=== PATIENT | female | born 1995 | race Caucasian/White ===

== ENCOUNTER 2021-03-05 07:28 | Inpatient (IN) ==
--- NOTE | 2021-03-05 08:03 | History & Physical Report ---
Date of Service March 05, 2021 Assessment & Plan (1) Supervision of normal first : (2) GBS (group B Streptococcus carrier), +RV culture, currently : (3) Encounter for induction of labor: Plan: 26yo Female presents for induction of labor. -continue to monitor FHR and contractions -start pitocin Admission and Anticipated Discharge Date Admission Date: March 05, 2021 History of Present Illness Chief Complaint: Induction of Labor Primary Care Provider: NO PCP 26yo Female at 38 4/7 weeks gestation presents to L&D for induction of labor. She has had regular care. She is at bedside, calm and cooperative, no recent contractions, discharge fluid leakage or bleeding. No complaints of DEL TORO dizziness blurry vision tinnitus chest pain abd pain. She states she feels FM. Blood Type & RH O positive Antibody Screen Negative Pap Test ASCUS HPV negative Chlamydia Negative Gonorrhea Negative Rubella non- immune RPR non- reactive GBS Positive HBsAg Negative HIV Negative Allergies Allergy/AdvReac Type Severity Reaction Status Date / Time No Known Allergies Allergy Verified 03/05/21 10:47 Home Medications Medication Instructions Recorded Confirmed Type aspirin 81 mg tablet,delayed 81 mg PO DAILY 03/05/21 03/05/21 History release (Aspirin Low Dose) magnesium oxide 400 mg PO DAILY 03/05/21 03/05/21 History prenat.vits,gonzalo,tcn-iogn-tgkhq 1 tab PO DAILY 03/05/21 03/05/21 History Patient History Medical History History of chicken pox Magnesium deficiency Thyroid nodule Surgical History S/P excision of ganglion cyst S/P wisdom tooth extraction Family History Denies family history of Ovarian cancer Breast cancer Colorectal cancer Social History Smoking Status: Never smoker Hx Alcohol Use: No Hx Substance Use: No Preferred Language: Liberian Beliefs That Will Affect Care: None marital status: marital status details: Chandu Ryan (29) [phone] Current Living Situation: Spouse Current Living Situation Comment: lives with spouse, dogs current occupational status: previously employed current occupation: nurse Other Information That Helps Us Care for You: No Feels Safe at Home: Yes Safety Concerns: Feels Safe At This Time Assistive Devices: None OB History Review of Systems Review of Systems Denies fever, chills, sweats Denies shortness of breath, difficulty breathing, chest pain, palpitations, chest pressure. Denies breast pain. Denies dysuria. Denies headache or changes in vision, tinnitus Denies abd pain, diarrhea constipation, vaginal bleeding discharge fluid leakage Physical Exam Physical Exam: General: Alert, oriented. No acute distress. Cardiac: Regular rate and rhythm, no murmurs/rubs/gallops. Respiratory: Clear to auscultation bilaterally a/p, no wheezes/rales/rhonchi. No increased work of breathing. Symmetrical chest rise. No respiratory distress. Lower Extremities: No lower extremity edema or swelling. No deep calf pain. Christine's negative bilaterally Baseline:140 Variability:moderate Accelerations:none Decelerations:none Results & Data ([facility]) Vital Signs (Past 12 Hours) Vital Signs Pulse BP 03/05/21 07:48 76 132/78 Resident Activity Tracking Resident Involvement: Resident Care Provided Care Provided: OB Delivery
[2021-03-05] MEDS ORDERED: OXYTOCIN 30 UNITS/500 ML BAG IV PRN ×2 (08:04→08:58)
[2021-03-05] MEDS ORDERED: PENICILLIN G POTASSIUM 6 MU in DEXTROSE 5% 250 ML IV ONE (08:30)
[2021-03-05 08:33] LABS: Hematocrit (blood only) 36.3 % (37-47); Hemoglobin 12.8 g/dL (12.0-16.0); Mean Corpuscular Hemoglobin 29.8 pg (25-34); Mean Corpuscular Hgb Conc 35.3 g/dL (32-36); Mean Corpuscular Volume 84.4 fL (80-100); Mean Platelet Volume 10.2 fL (7.4-10.4); Platelet Count 155 K/uL (130-400); RDW Coefficient of Variation 12.6 % (11.5-14.5); RDW Standard Deviation 38.1 fL (36.4-46.3); White Blood Count 10.13 K/uL (4.8-10.8)
--- NOTE | 2021-03-05 09:04 | Labor Progress Brief Note ---
Date of Service March 05, 2021 Subjective Comfortable. Presents for IOL. Unable to be brought in for peterson bulb ripening last night as planned due to high L&D census, so beginning this AM instead. Arrives without OB c/o, good FM. Assessment & Plan (1) Encounter for induction of labor: Plan: Peterson now, Pit to start low dose. Will go to IOL doses after peterson out or ROM occurs. (2) Chronic hypertension affecting : Plan: BP OK this morning, no s/sx preeclampsia at this time. (3) Velamentous insertion of umbilical cord: Plan: Aware; growth has been normal, will be on the lookout for excess bleeding especially at ROM. (4) GBS (group B Streptococcus carrier), +RV culture, currently : Plan: PCN ready on the unit for when active labor is occurring. Admission and Anticipated Discharge Date Admission Date: March 05, 2021 Physical Exam Physical Exam: 1.5/50/-2/mid/moderate 7-8lb PETERSON placed without complication FHT Cat 1 irritable toco / no pattern. Results & Data ([facility]) Vital Signs (Past 12 Hours) Vital Signs Pulse BP 03/05/21 07:48 76 132/78 Coding Level of Care Code None Diagnoses Encounter for induction of labor Z34.90 Chronic hypertension affecting O10.919 Velamentous insertion of umbilical cord O43.129 GBS (group B Streptococcus carrier), +RV culture, currently O99.820
--- NOTE | 2021-03-05 09:05 | Procedure Note ---
Procedure Note Date of Service March 05, 2021 Note Patient was placed in L&D bed and a reactive NST was obtained. The peterson bulb placement process was explained to the patient and all questions answered to her satisfaction. She was positioned in lithotomy, and a non-latex peterson was pr epared with a lubricated stylet and a syringe of 30cc sterile water. A gloved hand was used to identify and examine the cervix which was found to be 1.5/50/- 2. The catheter was advanced to a point just outside the internal os, then the peterson was slid forward off of the stylet and into the uterine cavity outside the amniotic sac. The stylet was removed, and the peterson balloon was inflated to 30cc. The peterson was gently seated downward against the internal cervical os and fixed to the patient's thigh. The heart tones remained cat 1. Coding CPT Codes Misx Procedure Codes - 52746 Placement of cervical dilator: 31436 Placement of cervical dilator ([id number]) [facility] Procedure Codes ([place]) Misx Procedure Codes 43440 Placement of cervical dilator
[2021-03-05] MEDS: LACTATED RINGER'S 1,000 ML IV PRN ×3 (10:09→23:15)
[2021-03-05] MEDS: PENICILLIN G POTASSIUM 3 MU in DEXTROSE 5% 100 ML IV PRN ×2 (18:03→22:03)
--- NOTE | 2021-03-05 18:25 | Labor Progress Brief Note ---
Date of Service March 05, 2021 Subjective Tolerating contractions well, has not wanted epidural yet. Assessment & Plan (1) Encounter for induction of labor: Plan: Continue current mgmt. Epidural on request. Admission and Anticipated Discharge Date Admission Date: March 05, 2021 Physical Exam Physical Exam: /-2 AROM for clear fluid performed FHT Cat 1 Donna q2-3 second dose PCN just hung Results & Data ([facility]) Vital Signs (Past 12 Hours) Vital Signs Temp Pulse Resp BP 03/05/21 17:59 97.5 F L 20 03/05/21 17:58 80 122/81 03/05/21 15:31 70 121/78 03/05/21 15:05 98.1 F 16 03/05/21 13:38 98.4 F 20 03/05/21 13:37 89 120/75 03/05/21 12:02 69 126/85 03/05/21 09:35 20 03/05/21 07:48 97.7 F 76 20 132/78 Coding Level of Care Code None Diagnoses Encounter for induction of labor Z34.90
[2021-03-05] MEDS ORDERED: ePHEDrine sulfate 50 MG/ML AMP ONE (22:30)
[2021-03-05] MEDS ORDERED: SODIUM CHLORIDE 0.9% INJ 10 ML VIAL ONE (22:31)
[2021-03-05] MEDS ORDERED: fentaNYL citrate 100 MCG/2 ML VIAL ONE (22:31)
[2021-03-05] MEDS ORDERED: BUPIVACAINE 0.25% 30 ML VIAL ONE (22:31)
[2021-03-05] MEDS ORDERED: fentaNYL 2MCG/ML ROPIVACAINE 1.25MG/ML 100 ML BAG EPI ONE (22:31)
[2021-03-05] MEDS ORDERED: ePHEDrine sulfate 50 MG/ML AMP IV PRN (23:01)
[2021-03-05] MEDS ORDERED: NALBUPHINE HCL INJ 10 MG/ML AMP IV PRN (23:01)
[2021-03-05] MEDS ORDERED: diphenhydrAMINE 50 MG/ML VIAL IV PRN (23:01)
[2021-03-05] MEDS ORDERED: NALOXONE HCL 1 MG in SODIUM CHLORIDE 0.9% 1000ML 1,000 ML IV PRN (23:01)
[2021-03-05] MEDS ORDERED: fentaNYL 2MCG/ML ROPIVACAINE 1.25MG/ML 100 ML BAG EPI PRN (23:01)
[2021-03-05] MEDS ORDERED: ONDANSETRON INJ 2 MG/ML 2 ML VIAL IV PRN (23:01)
[2021-03-05] MEDS ORDERED: NALOXONE HCL 0.4 MG/1 ML VIAL/CARP IV PRN (23:01)
--- NOTE | 2021-03-05 23:03 | Anesthesiology Consultation ---
Date of Service March 05, 2021 Assessment & Plan (1) Encounter for pre-operative examination: Chart Review Chart Review: Patient NOT seen in Pre Admission Testing and Acceptable Risk for Labor Epidural Consults Requested none History Height/Weight Height: 5 ft 9 in Weight: 103.419 kg Allergies Allergy/AdvReac Type Severity Reaction Status Date / Time No Known Allergies Allergy Verified 03/05/21 10:47 Medications Home Medications Medication Instructions Recorded Confirmed Last Taken aspirin 81 mg tablet,delayed 81 mg PO DAILY 03/05/21 03/05/21 03/04/21 23:00 release (Aspirin Low Dose) magnesium oxide 400 mg PO DAILY 03/05/21 03/05/21 03/04/21 23:00 prenat.vits,gonzalo,ghh-ptjo-eixjt 1 tab PO DAILY 03/05/21 03/05/21 03/04/21 23:00 Active Medications Generic Name Dose Route Start Last Admin Trade Name Freq PRN Reason Stop Dose Admin Lactated Ringer's 1,000 mls @ 125 mls/hr 03/05/21 08:04 03/05/21 22:23 Lr IV 03/07/21 08:03 999 mls/hr .Q8H PRN Infusion L&D Protocol Protocol Penicillin G Potassium 3 mu/ 106 mls @ 100 mls/hr 03/05/21 08:04 03/05/21 22:03 Dextrose IV 03/15/21 08:03 100 mls/hr Q4H PRN Administration Give until delivery Oxytocin 30 units in 500 mls @ 19 mls/hr 03/05/21 08:58 03/05/21 22:53 Pitocin IV 03/07/21 08:57 1.14 units/hr .Q24H PRN 19 mls/hr Labor Induction/Augmentation Titration Protocol 1.14 UNITS/HR Past Medical History Medical History History of chicken pox Magnesium deficiency Thyroid nodule Past Family History Family History Denies family history of Ovarian cancer Breast cancer Colorectal cancer Past Surgical History Surgical History S/P excision of ganglion cyst S/P wisdom tooth extraction Past Anesthesia History No Hx of Anesthesia Complications and No Family Hx of Anesthesia Complications Social History Smoking Status: Never smoker Hx Alcohol Use: No Hx Substance Use: No substance use type: does not use Physical Exam Vital Signs Last Vital Signs Temp 36.6 C 03/05/21 22:08 Pulse 94 H 03/05/21 23:19 Resp 20 03/05/21 20:02 BP 130/79 03/05/21 23:17 Pulse Ox 99 03/05/21 23:19 Testing Laboratory Results 03/05/21 08:20
--- NOTE | 2021-03-06 00:07 | Labor Progress Brief Note ---
Date of Service March 06, 2021 Subjective Just received epidural for painful contractions (started to hurt once pitocin reached 19). Now comfortable. Assessment & Plan (1) Encounter for induction of labor: Plan: Very poor MVU despite pitocin increased to 21 right before IUPC placed. Suspicious for saturation of receptors. Will give 30min off of pitocin and re- titrate upwards to goal of 200-250, max 30mu/min rate. Ruptured, epidural in place, GBS abx adequate and continuing, status reassuring, afebrile. Pt and FOB agreeable. Admission and Anticipated Discharge Date Admission Date: March 05, 2021 Physical Exam Physical Exam: FHT Cat 1 Morris was Q2-3 Pit @ 19 IUPC and EFM placed cvx /-1 Initial MVU <50(!) Results & Data ([facility]) Vital Signs (Past 12 Hours) Vital Signs Temp Pulse Resp BP Pulse Ox 03/06/21 00:02 81 100/47 L 03/05/21 23:59 88 99 03/05/21 23:54 83 100 03/05/21 23:49 91 H 99 03/05/21 23:45 83 111/55 L 03/05/21 23:44 82 99 03/05/21 23:43 78 110/57 L 03/05/21 23:41 92 H 108/56 L 03/05/21 23:39 90 96/51 L 99 03/05/21 23:37 110 H 103/66 03/05/21 23:35 110 H 106/56 L 03/05/21 23:34 99 H 97 03/05/21 23:33 96 H 116/56 L 03/05/21 23:31 96 H 120/59 L 03/05/21 23:29 104 H 114/58 L 99 03/05/21 23:27 91 H 117/58 L 03/05/21 23:25 87 107/58 L 03/05/21 23:24 84 100 03/05/21 23:23 78 116/56 L 03/05/21 23:19 94 H 99 03/05/21 23:17 99 H 130/79 03/05/21 23:14 92 H 134/82 100 03/05/21 23:10 91 H 134/81 03/05/21 23:09 106 H 97 03/05/21 23:03 81 100 03/05/21 22:58 78 100 03/05/21 22:57 73 131/77 03/05/21 22:53 85 100 03/05/21 22:50 94 H 94 03/05/21 22:48 86 100 03/05/21 22:43 82 100 03/05/21 22:37 79 98 03/05/21 22:32 83 99 03/05/21 22:25 79 98 03/05/21 22:20 89 98 03/05/21 22:08 97.9 F 03/05/21 20:02 98.1 F 20 03/05/21 17:59 97.5 F L 20 03/05/21 17:58 80 122/81 03/05/21 15:31 70 121/78 03/05/21 15:05 98.1 F 16 03/05/21 13:38 98.4 F 20 03/05/21 13:37 89 120/75 Coding Level of Care Code None Diagnoses Encounter for induction of labor Z34.90
[2021-03-06] MEDS ORDERED: Nursing to Pharmacy Communication SCH (02:00)
[2021-03-06] MEDS: PENICILLIN G POTASSIUM 3 MU in DEXTROSE 5% 100 ML IV PRN (02:04)
[2021-03-06] MEDS ORDERED: DIPHTHERIA/TETANUS/PERTUSSIS 0.5 ML SYR/VIAL IM ONE (05:28)
[2021-03-06] MEDS ORDERED: BENZOCAINE 20% AER SPR 82.5 GM CAN EXT PRN (05:28)
[2021-03-06] MEDS ORDERED: SUPERCREAM 0.870% 15 GM JAR EXT PRN (05:28)
[2021-03-06] MEDS ORDERED: HYDROCORTISONE ACETATE 25 MG SUPP PR PRN (05:28)
[2021-03-06] MEDS ORDERED: oxyCODONE/ACETAMINOPHEN 5mg/325mg TAB PO PRN (05:28)
[2021-03-06] MEDS ORDERED: ACETAMINOPHEN 325 MG TAB PO PRN (05:28)
--- NOTE | 2021-03-06 05:33 | Delivery Summary ---
Vaginal Delivery Summary Date of Service March 06, 2021 Vaginal Delivery Summary DIAGNOSES: 1. Moreira intrauterine at 38w5d gestation. 2. Induction of Labor. 3. Group B Streptococcus Pos. 4. Chronic HTN 5. Velamentous insertion of the cord, Bi-lobed placenta PROCEDURE: Spontaneous vaginal delivery and repair of 2nd degree laceration. SURGEON: Brandi Marroquin MD. ORACLE ERP ARCHITECT: None. ESTIMATED BLOOD LOSS: 300 mL. COMPLICATIONS: None. PLACENTA: Spontaneous and intact with a 3-vessel cord. DISPOSITION: Stable to labor and delivery. DESCRIPTION: The patient pushed well and brought the head to in OA position. The infant's head was allowed to deliver with contraction force and no further active pushing, with the perineum protected during this time. There was a nuchal cord which could not be reduced but the baby delivered through. The right shoulder was anterior. The shoulders and body delivered without any difficulty, and the infant was placed on the maternal abdomen. It was vigorous and moving all extremities, and making respiratory efforts. The cord was doubly clamped by the MD and then cut by the FOB. The placenta delivered spontaneously and was noted to be intact and with a 3VC, though it had a true velamentous insertion of the cord between two portions of a bilobed placenta. Due to the velamentous insertion, traction on the cord was avoided, and the placenta was partially disrupted by being grasped in the cervix/vaginal vault and traction being applied to the placental body itself during uterine massage to encourage delivery. It was examined and did appear to be completely present after delivery. The cervix, vagina and perineum were examined and were found to have a small second degree laceration which was repaired in the usual manner with 2-0 vicryl suture. The fundus was firm and lochia minimal immediately after delivery. [facility] Vaginal Delivery Charge Vaginal Delivery Codes: 07452 global code for the antepartum, delivery, and pos t-
[2021-03-06] MEDS: LACTATED RINGER'S 1,000 ML IV PRN (06:20)
[2021-03-06] MEDS ORDERED: MEASLES, MUMPS & RUBELLA VIRUS VIAL SQ ONE (08:00)
--- NOTE | 2021-03-06 08:41 | Anesthesia Procedure Note ---
Date of Service March 06, 2021 Anesthesia Post Epidural Note Vital Signs Vital Signs: Temp Pulse Resp BP Pulse Ox 36.9 C 100 H 18 119/59 L 98 03/06/21 03:08 03/06/21 07:16 03/06/21 03:08 03/06/21 07:16 03/06/21 05:04 Pain Intensity Bilateral Abdomen: Pain Intensity: 0 Notes Mental Status: alert / awake / arousable and participated in evaluation Nausea / Vomiting: adequately controlled Pain: adequately controlled Airway Patency, RR, SpO2: stable & adequate BP & HR: stable & adequate Hydration State: stable & adequate Neuraxial Anesthesia: was administered and sensory block is resolving Anesthetic Complications: no major complications apparent and Pt Satisfied with anesthetic care Epidural: Removed without complications and With tip intact
[2021-03-06] MEDS: IBUPROFEN 600 MG TAB PO PRN ×2 (16:36→20:36)
[2021-03-06] MEDS: DOCUSATE SODIUM 100 MG CAP PO SCH (20:36)
[2021-03-07] MEDS: IBUPROFEN 600 MG TAB PO PRN ×4 (00:30→16:22)
[2021-03-07 07:07] LABS: Hematocrit (blood only) 24.8 % (37-47); Hemoglobin 8.5 g/dL (12.0-16.0)
--- NOTE | 2021-03-07 07:31 | Obstetrical Progress Note ---
Date of Service <Amy Palomino DO - Last Filed: 03/07/21 08:07> March 07, 2021 Assessment & Plan <Amy Palomino DO - Last Filed: 03/07/21 08:07> (1) Encounter for care and examination after delivery: 26 yo post op day1 from with history chronic HTN and velamentous insertion of the cord, doing well. -Continue routine post care. -vital signs reviewed and WNL (Tmax 36.5) -Blood Type O+, GBS+, Rubella nonimmune will need MMR vaccine b/f d/c -Encourage ambulation, monitor and control pain with Motrin, tylenol PRN, resume regular diet, monitor lochia -encourage breast feeding -hemoglobin 12.8 -discussed d/c with patient, they would prefer to go home today Day #:: 1 <Ирина Samaniego MD, FACOG - Last Filed: 03/07/21 08:26> (1) Encounter for care and examination after delivery: Subjective <Amy Palomino DO - Last Filed: 03/07/21 08:07> Ambulation: ambulating normally Voiding: no voiding problems Passing Gas:: Yes Diet Tolerance:: regular diet Lochia:: Small Feeding Type:: breast feeding Current Pain Level(1-10): 2 (pain well controlled on medication) Review of Systems Denies fever, chills, sweats Denies shortness of breath, difficulty breathing, chest pain, palpitations, chest pressure. Denies breast pain. Denies dysuria. Denies headache or changes in vision. Physical Exam <DO Lai Mckeon Last Filed: 03/07/21 08:07> General: Alert, oriented. No acute distress. Cardiac: Regular rate and rhythm, no murmurs/rubs/gallops. Respiratory: Clear to auscultation bilaterally a/p, no wheezes/rales/rhonchi. No increased work of breathing. Symmetrical chest rise. No respiratory distress. Abdomen: Soft, nontender, nondistended. Bowel sounds present. Uterus: Uterine fundus firm, palpable at umbilicus. Lower Extremities: No lower extremity edema or swelling. No deep calf pain. Christine's negative bilaterally.. Results & Data ([facility]) <Amy Dong, DO - Last Filed: 03/07/21 08:07> Vital Signs (Past 12 Hours) Vital Signs Temp Pulse Resp BP Pulse Ox 03/07/21 04:50 36.5 C 82 16 107/62 98 03/07/21 00:30 36.9 C 84 16 101/60 98 Laboratory Results 03/07/21 Range/Units 06:43 Hgb 8.5 L D (12.0-16.0) g/dL Hct 24.8 L (37-47) % Medications Administered Current Inpatient Medications Acetaminophen (Acetaminophen 325 Mg Tab) 650 mg PO Q6H PRN PRN Reason: Pain/DEL TORO/Fever Stop: 04/05/21 05:27 Benzocaine (Benzocaine 20% Aer Spr 82.5 Gm Can) 1 appln EXT PRN PRN PRN Reason: Perineal Discomfort Stop: 04/05/21 05:27 Last Admin: 03/06/21 10:36 Dose: 82.5 appln Documented by: Cocaine HCl (Supercream 0.870% 15 Gm Jar) 1 gm EXT BID PRN PRN Reason: Hemorrhoidal Inflammation Stop: 03/20/21 05:27 Docusate Sodium (Docusate Sodium 100 Mg Cap) 100 mg PO DAILY@ [facility] [place] Stop: 04/05/21 07:59 Last Admin: 03/06/21 20:36 Dose: 100 mg Documented by: Hydrocortisone (Hydrocortisone Acetate 25 Mg Supp) 25 mg MT BID PRN PRN Reason: Hemorrhoidal Inflammation Stop: 04/05/21 05:27 Lactated Ringer's (Lr) 1,000 mls @ 125 mls/hr IV .Q8H PRN; Protocol PRN Reason: L&D Protocol Stop: 03/07/21 08:03 Last Admin: 03/06/21 06:20 Dose: 999 mls/hr Documented by: Oxytocin (Pitocin) 30 units in 500 mls @ 333.333 mls/hr IV .Q1H30M PRN; Protocol PRN Reason: Bleeding Control Stop: 04/04/21 08:03 Ibuprofen (Ibuprofen 600 Mg Tab) 600 mg PO Q4H PRN PRN Reason: Pain/DEL TORO/Cramping/Fever Stop: 04/05/21 05:27 Last Admin: 03/07/21 04:57 Dose: 600 mg Documented by: Oxycodone/Acetaminophen (Oxycodone/Acetaminophen 5mg/325mg Tab) 1 tab PO Q4H PRN PRN Reason: Pain not relieved by... Stop: 03/20/21 05:27 Prenat Multivit/[place]/Iron/Folic Ac ( Vitamin 1 Tab) 1 tab PO DAILY@08 [place] Stop: 04/05/21 07:59 <Ирина Samaniego MD, FACOG - Last Filed: 03/07/21 08:26> Co-Signing Physician Notes Resident Physician Supervision Note: I interviewed and examined the patient. Discussed with Dr. Palomino and agree with findings and plan as documented in the note. Any exceptions or clarifications are listed here: Doing well. Plan d/c. INstructions given. BP have been good. Documented By: Ирина Samaniego MD, FACOG Resident Activity Tracking <Amy Palomino DO - Last Filed: 03/07/21 08:07> Resident Involvement: Resident Care Provided Care Provided: OB Delivery
[2021-03-07] MEDS: DOCUSATE SODIUM 100 MG CAP PO SCH ×2 (08:49→08:51)
[2021-03-07] MEDS: PRENATAL VITAMIN 1 TAB PO SCH ×2 (08:50→08:52)
== END 2021-03-07 18:00 | disposition home or self-care (01) | DRG 807 ==
LOC: 4S1 07:28 → 4N 03-06 07:38

== ENCOUNTER 2023-05-26 07:41 | Inpatient (IN) ==
[2023-05-26] MEDS ORDERED: LIDOCAINE 1% LOCAL 20 ML VIAL INFIL PRN (08:02)
[2023-05-26] MEDS ORDERED: PENICILLIN G POTASSIUM 6 MU in DEXTROSE 5% 250 ML IV STA (08:02)
[2023-05-26] MEDS ORDERED: OXYTOCIN 30 UNITS/500 ML BAG IV PRN ×3 (08:02→18:08)
--- NOTE | 2023-05-26 08:09 | History & Physical Report ---
Date of Service May 26, 2023 Assessment & Plan (1) Gestational diabetes mellitus (GDM) affecting , antepartum: (2) Encounter for supervision of normal in multigravida, antepartum: Plan admit for iol, cervix favorable, fetus category one. Plan per patient is arom and then pitocin if indicated. Notes her blood sugars have been controlled with diet. Anticipate . Admission and Anticipated Discharge Date Admission Date: May 26, 2023 History of Present Illness Chief Complaint: iol Primary Care Provider: NO PCP Patient is a G with iup at 40 0/7 weeks who presents to labor and delivery for elective induction. Feels well. Intermittent tightening. no lof/vb. Good FM and Delivery Plans COVID POSITIVE 03/14/23 (SX STARTED 03/13/23) Hx Thyroid Nodule *No current meds SMA carrier *fob negative GBS positive urine-treat in labor GDM w/wk glucola *Begin monthly Growth US's Flu shot given 05/13/23 - AL IOL 05/26/23 OB Labs: Blood Type O Positive 10/14/22 Antibody Screen NEGATIVE 10/14/22 Hemoglobin 12.6 g/dl (12.0-16.0) 03/08/23 Hematocrit 36.6 % (37.0-47.0) L 03/08/23 Mean Corpuscular Volume 85.5 fL (80.0-100.0) 10/14/22 Platelet Count 189 K/uL (130-400) 10/14/22 Rubella IgG Antibody Immune (Immune) 10/14/22 Rapid Plasma Reagin Nonreactive (Nonreactive) 10/14/22 Hepatitis B Surface Antigen. NON-REACTIVE (NON-REACTIVE) 10/14/22 Hepatitis C Antibody Neg (Neg) 08/11/21 Hepatitis C Antibody (EIA) NON-REACTIVE (NON-REACTIVE) 10/14/22 HIV (1&2) Ag and Ab Confirmation NON-REACTIVE (NON-REACTIVE) 10/14/22 Glucose 1 Hour 50 gm Load 150 mg/dl (70-130) H 03/08/23 Maternal Serum Alpha Fetoprotein 16.8 ng/mL 12/07/22 OB Optional Labs: Chlamydia trachomatis RNA Not Detected (NotDetected) 10/14/22 Neisseria gonorrhoeae RNA Not Detected (NotDetected) 10/14/22 Thyroid Stimulating Hormone (TSH) 1.759 uIu/ml (0.300-4.500) 10/14/22 Alpha Fetoprotein Triple Screen SEE NOTE 12/07/22 gbs positive Allergies Allergy/AdvReac Type Severity Reaction Status Date / Time No Known Allergies Allergy Verified 05/25/23 14:29 Home Medications Medication Instructions Recorded Confirmed Type prenat.vits,gonzalo,sgm-mxgo-srmnd 1 tab PO DAILY 03/05/21 05/25/23 History acetone (urine) test (Ketone Urine #50 03/25/23 05/25/23 Rx Test strips) blood sugar diagnostic (OneTouch #150 03/25/23 05/25/23 Rx Verio test strips) blood-glucose meter (OneTouch #1 03/25/23 05/25/23 Rx Verio Reflect Meter) lancets 33 gauge #150 03/25/23 05/25/23 Rx Patient History Medical History GBS (group B Streptococcus carrier), +RV culture, currently Chronic hypertension affecting Magnesium deficiency Thyroid nodule Velamentous insertion of umbilical cord History of chicken pox Surgical History S/P excision of ganglion cyst S/P wisdom tooth extraction Family History Mother Hypertension Father No problems noted. Daughter No problems noted. Denies family history of Ovarian cancer Prostate cancer Myocardial infarction Breast cancer Colorectal cancer Social History Smoking Status: Never smoker Second Hand Exposure: No; Do You Dip or Chew Tobacco: No; Hx Alcohol Use: Yes Alcohol type: beer Alcohol Intake Frequency: 2-3 x/Week Hx Substance Use: No Preferred Language: Swedish Communication Ability: Effective Visual Impairment: No Limitations Hearing Ability: Normal Beliefs That Will Affect Care: None marital status: marital status details: Chandu Ryan (31) [phone] Current Living Situation: Spouse Current Living Situation Comment: lives with spouse, child, 2 dogs. great grandmother current occupational status: employed and previously employed current occupation: nurse @ [employer] Feels Safe at Home: Yes Childhood Exposure to Second-Hand Smoke: No Diet: other Diet Comment: DAIRY FREE Dental Care, Regularly: Yes Physical Activity Frequency: 3-4 Times per Week Seatbelt Use: always Sunscreen Use: Yes Assistive Devices: None OB History Past Pregnancies Del. Date GA wks Lbr Lgth wt Sex Type del Anes Place Del Prov ? Comment 03/05/21 38 7lb 2.9oz F Epi dural [employer] Dr. Marroquin No Velamentous Cord Insertion Physical Exam Constitutional: WD/WN, vitals as above Gastrointestinal (Abdomen): soft, gravid, nt Psychiatric: A+Ox3, euthymic affect Genitourinary: cx--3-4/80/-[address] Quiles yesterday. toco--lucy efm--130s with mod variabiltiy, accels to 150s, no decels Results & Data Vital Signs (Past 12 Hours) Vital Signs Pulse BP 05/26/23 07:58 77 131/84 Coding Level of Care Code None Diagnoses Gestational diabetes mellitus (GDM) affecting , antepartum O24.419 Encounter for supervision of normal in multigravida, antepartum Z34.80
[2023-05-26 08:33] LABS: Hematocrit (blood only) 36.8 % (37.0-47.0); Hemoglobin 12.8 g/dl (12.0-16.0); Mean Corpuscular Hgb Conc 34.8 g/dL (32.0-36.0); Mean Corpuscular Volume 83.3 fL (80.0-100.0); Mean Platelet Volume 11.4 fL (9.4-12.4); Platelet Count 154 K/uL (130-400); RDW Coefficient of Variation 12.8 % (11.5-14.5); RDW Standard Deviation 38.5 fL (36.4-46.3); Red Blood Count 4.42 M/uL (4.20-5.40); White Blood Count 9.56 K/ul (4.8-10.8)
[2023-05-26] MEDS: LACTATED RINGER'S 1,000 ML IV PRN ×2 (08:50→16:03)
[2023-05-26] MEDS: PENICILLIN G POTASSIUM 3 MU in DEXTROSE 5% 100 ML IV PRN ×2 (12:20→16:20)
[2023-05-26] MEDS ORDERED: SODIUM CHLORIDE 0.9% PF INJ 10 ML VIAL ONE (16:11)
[2023-05-26] MEDS ORDERED: fentaNYL citrate PF 100 MCG/2 ML VIAL ONE (16:11)
[2023-05-26] MEDS ORDERED: ePHEDrine sulfate 50 MG/ML AMP ONE (16:11)
[2023-05-26] MEDS ORDERED: fentANYL 2 MCG/ML BUPIVacaine 0.125%-NSS 100ML BAG ONE (16:11)
[2023-05-26] MEDS ORDERED: BUPIVACAINE 0.25% PF 30 ML VIAL ONE (16:12)
[2023-05-26] MEDS ORDERED: LIDOCAINE 2%/EPINEPHRINE 1:200,000 20 ML PF ONE (16:12)
[2023-05-26] MEDS ORDERED: NALOXONE HCL 0.4 MG/1 ML VIAL/CARP IV PRN (16:20)
[2023-05-26] MEDS ORDERED: ePHEDrine sulfate 50 MG/ML AMP IV PRN (16:20)
[2023-05-26] MEDS ORDERED: NALBUPHINE HCL INJ 10 MG/ML AMP IV PRN (16:20)
[2023-05-26] MEDS ORDERED: SODIUM CHLORIDE 0.9% PF INJ 10 ML VIAL EPI PRN (16:20)
[2023-05-26] MEDS ORDERED: BUPIVACAINE 0.25% PF 30 ML VIAL EPI PRN (16:20)
[2023-05-26] MEDS ORDERED: LIDOCAINE 2%/EPINEPHRINE 1:200,000 20 ML PF EPI STA (16:20)
[2023-05-26] MEDS ORDERED: fentANYL 2 MCG/ML BUPIVacaine 0.125%-NSS 100ML BAG EPI PRN (16:20)
[2023-05-26] MEDS ORDERED: fentaNYL citrate PF 100 MCG/2 ML VIAL EPI PRN (16:20)
[2023-05-26] MEDS ORDERED: SODIUM CHLORIDE 0.9% PF INJ 10 ML VIAL EPI STA (16:20)
[2023-05-26] MEDS ORDERED: LIDOCAINE 2% MPF LOCAL 5 ML VIAL EPI PRN (16:20)
[2023-05-26] MEDS ORDERED: ROPIVACAINE 0.5% PF 5 MG/ML 20 ML VIAL EPI PRN (16:20)
[2023-05-26] MEDS ORDERED: BUPIVACAINE 0.25% PF 30 ML VIAL EPI STA (16:20)
[2023-05-26] MEDS ORDERED: diphenhydrAMINE 50 MG/ML VIAL IV PRN (16:20)
[2023-05-26] MEDS ORDERED: fentaNYL citrate PF 100 MCG/2 ML VIAL EPI STA (16:20)
[2023-05-26] MEDS ORDERED: NALOXONE HCL 1 MG in SODIUM CHLORIDE 0.9% 1,000 ML IV PRN (16:20)
--- NOTE | 2023-05-26 16:20 | Anesthesiology Consultation ---
Date of Service May 26, 2023 Assessment & Plan (1) Encounter for pre-operative examination: Chart Review Chart Review: Patient NOT seen in Pre Admission Testing and Acceptable Risk for Labor Epidural Consults Requested none History Height/Weight Height: 5 ft 9.5 in Weight: 99.79 kg Allergies Allergy/AdvReac Type Severity Reaction Status Date / Time No Known Allergies Allergy Verified 05/25/23 14:29 Medications Home Medications Medication Instructions Recorded Confirmed Last Taken prenat.vits,gonzalo,xsu-uero-imbrd 1 tab PO DAILY 03/05/21 05/26/23 05/25/23 20:00 acetone (urine) test (Ketone Urine #50 ea 03/25/23 05/25/23 Unknown Test strips) blood sugar diagnostic (OneTouch #150 ea 03/25/23 05/25/23 Unknown Verio test strips) blood-glucose meter (OneTouch #1 ea 03/25/23 05/25/23 Unknown Verio Reflect Meter) lancets 33 gauge #150 ea 03/25/23 05/25/23 Unknown Active Medications Generic Name Dose Route Start Last Admin Trade Name Freq PRN Reason Stop Dose Admin Oxytocin 30 units in 500 mls @ 9 mls/hr 05/26/23 08:02 05/26/23 16:00 Pitocin IV 05/28/23 08:01 0.54 units/hr .Q24H PRN 9 mls/hr Labor Induction/Augmentation Titration Protocol 0.54 UNITS/HR Lactated Ringer's 1,000 mls @ 125 mls/hr 05/26/23 08:02 05/26/23 16:03 Lr IV 05/28/23 08:01 125 mls/hr .Q8H PRN Administration L&D Protocol Protocol Penicillin G Potassium 3 mu/ 106 mls @ 100 mls/hr 05/26/23 11:02 05/26/23 16:20 Dextrose IV 06/05/23 11:01 100 mls/hr Q4H PRN Administration GBS(+) Until Delivery Past Medical History Medical History GBS (group B Streptococcus carrier), +RV culture, currently Chronic hypertension affecting Magnesium deficiency Thyroid nodule Velamentous insertion of umbilical cord History of chicken pox Past Family History Family History Mother Hypertension Father No problems noted. Daughter No problems noted. Denies family history of Ovarian cancer Prostate cancer Myocardial infarction Breast cancer Colorectal cancer Past Surgical History Surgical History S/P excision of ganglion cyst S/P wisdom tooth extraction Social History Smoking Status: Never smoker Do You Dip or Chew Tobacco: No Hx Alcohol Use: Yes Alcohol type: beer alcohol intake frequency: holidays/special occasions only Alcohol Intake Frequency Comment: Patient states does not drink alcohol with . Hx Substance Use: No substance use type: does not use Physical Exam Vital Signs Last Vital Signs Temp 98.2 F 05/26/23 16:06 Pulse 68 05/26/23 16:06 Resp 18 05/26/23 16:06 BP 131/80 05/26/23 16:06 Testing Laboratory Results 05/26/23 08:10
[2023-05-26] MEDS ORDERED: oxyCODONE/ACETAMINOPHEN 5mg/325mg TAB PO PRN (18:08)
[2023-05-26] MEDS ORDERED: bisacodyL 10 MG SUPP PR PRN (18:08)
[2023-05-26] MEDS ORDERED: BENZOCAINE 20% SPRY 85 APPLN/85 GM CAN EXT PRN (18:08)
[2023-05-26] MEDS ORDERED: DIPHTHERIA/TETANUS/PERTUSSIS Vaccine (Tdap, Age 7+yrs) 0.5mL SYR/VL IM ONE (18:08)
[2023-05-26] MEDS ORDERED: HYDROCORTISONE ACETATE 25 MG SUPP PR PRN (18:08)
[2023-05-26] MEDS ORDERED: ACETAMINOPHEN 325 MG TAB PO PRN (18:08)
--- NOTE | 2023-05-26 18:12 | Delivery Summary ---
Vaginal Delivery Summary Date of Service May 26, 2023 Vaginal Delivery Summary and 1st Degree LAC Patient is a 28-year-old 2 para 1-0-0-1 female EDC 11-23 who presents for induction of labor. Because of her advanced dilation membranes were ruptured after she received 1 dose of penicillin for GBS prophylaxis. A regular contraction pattern did not ensue after 2 hours, therefore Pitocin augmentation was begun. She received epidural analgesia which was effective. She progressed to full dilation with the urge to push. She pushed over intact perineum for delivery of a viable female infant in the occiput posterior presentation. The rest the infant delivered easily and was placed on the mother's abdomen for further attention and drying. She was vigorous and crying and moving all 4 limbs. After cord blood was obtained, the placenta was expressed intact with a three-vessel cord. Estimated blood loss was 200 cc. bleeding was controlled with dilute Pitocin and fundal massage. A first-degree perineal laceration was repaired with 3-0 chromic in the usual fashion. Mother and were doing well after delivery. [facility] [place]aginal Delivery Charge Delivery Type Details: and 1st Degree LAC
--- NOTE | 2023-05-26 18:49 | Anesthesia Procedure Note ---
Date of Service May 26, 2023 Anesthesia Post Epidural Note Vital Signs Vital Signs: Temp Pulse Resp BP Pulse Ox 98.2 F 67 18 124/64 100 05/26/23 17:10 05/26/23 18:45 05/26/23 17:10 05/26/23 18:45 05/26/23 18:18 Pain Intensity Lower Abdomen: Pain Intensity: 5 Notes Mental Status: alert / awake / arousable and participated in evaluation Nausea / Vomiting: adequately controlled Pain: adequately controlled Airway Patency, RR, SpO2: stable & adequate BP & HR: stable & adequate Hydration State: stable & adequate Neuraxial Anesthesia: was administered and sensory block is resolving Anesthetic Complications: no major complications apparent and Pt Satisfied with anesthetic care Epidural: Removed without complications and With tip intact
[2023-05-26] MEDS: DOCUSATE SODIUM 100 MG CAP PO SCH (20:08)
[2023-05-27] MEDS: IBUPROFEN 600 MG TAB PO PRN ×4 (02:36→17:09)
--- NOTE | 2023-05-27 06:42 | Obstetrical Progress Note ---
Date of Service <Kelle Lagos MD - Last Filed: 05/27/23 07:14> May 27, 2023 Assessment & Plan <Kelle Lagos MD - Last Filed: 05/27/23 07:14> (1) Encounter for assessment: Plan Patient with the above mentioned history and findings was evaluated at bedside and found awake, alert, oriented in all spheres, afebrile, and in no acute distress. Vital signs showed no fever and blood pressures remained stable and she has remained without symptoms of severity (e.g. vision changes, headaches, oliguria, etc.). Her blood type is O positive and today's hemoglobin is adequate at 12.1 g/dL. She is GBS positive which was treated intrapartum. She is rubella immune. Overall, patient is doing well clinically and meeting the desired milestones. Since she is found to be clinically and hemodynamically stable, will discharge today with follow up with her OB in 6 weeks for her routine pp evaluation. Discharge instructions discussed. All questions were answered. <Jennifer Valencia MD, FACOG - Last Filed: 05/27/23 07:28> (1) Encounter for assessment: Subjective <Kelle Lagos MD - Last Filed: 05/27/23 07:14> Bryon is a 28 y/o female who is now PPD # 1 following at 39 6/7 weeks after IOL due to GDM. Reports feeling well overall this morning. Refers mild abdominal cramping & 3/10 pain well managed on analgesics.She is voiding spontaneously without difficulty. She has passed flatus, but has not yet had a bowel movement. Tolerating meals overnight and able to ambulate some. Some persistent lochia with some improvement this morning. . Constitutional: no fever, no chills or no sweats Denies shortness of breath or difficulty breathing Cardiovascular: no chest pain or no palpitations Breast: no breast pain Genitourinary (female): no dysuria Neurologic: no headache(s) Denies changes in vision Physical Exam <Kelle Lagos MD - Last Filed: 05/27/23 07:14> General: Alert. Oriented to person, time, and place. Afebrile. No acute distress. Eyes: pupils equal and reactive to light bilaterally, extraocular movements intact. Cardiac: Regular rate and rhythm, no murmurs/rubs/gallops. Respiratory: Clear to auscultation bilaterally a/p, no wheezes/rales/rhonchi. No increased work of breathing. Symmetrical chest rise. No respiratory distress. Abdomen: Soft, nontender, nondistended. Bowel sounds present. Uterus: Uterine fundus firm, mildly tender, and palpable below umbilicus. Lower Extremities: No lower extremity edema or swelling. No deep calf pain. Christine's negative bilaterally. Psych: Euthymic affect. Mood and affect congruence. Regular speech rate and content. Results & Data <Kelle Lagos MD - Last Filed: 05/27/23 07:14> Vital Signs (Past 12 Hours) Vital Signs Temp Pulse Pulse Resp BP BP Pulse Ox 05/27/23 03:00 36.7 C 86 18 125/83 98 05/26/23 22:30 36.8 C 81 18 125/83 98 05/26/23 20:00 18 05/26/23 20:00 78 05/26/23 20:00 145/67 H 05/26/23 19:45 80 05/26/23 19:45 126/64 05/26/23 19:31 81 05/26/23 19:31 129/64 05/26/23 19:30 18 05/26/23 19:15 71 05/26/23 19:15 122/74 05/26/23 19:00 36.7 C 18 05/26/23 19:00 05/26/23 19:00 81 05/26/23 19:00 123/71 05/26/23 18:45 67 05/26/23 18:45 124/64 O2 Del Method 05/27/23 03:00 Room Air 05/26/23 22:30 Room Air 05/26/23 20:00 05/26/23 20:00 05/26/23 20:00 05/26/23 19:45 05/26/23 19:45 05/26/23 19:31 05/26/23 19:31 05/26/23 19:30 05/26/23 19:15 05/26/23 19:15 05/26/23 19:00 05/26/23 19:00 Room Air 05/26/23 19:00 05/26/23 19:00 05/26/23 18:45 05/26/23 18:45 Supervising Physician <Jennifer Valencia MD, FACOG - Last Filed: 05/27/23 07:28> Co-Signing Physician Notes Resident Physician Supervision Note: I interviewed and examined the patient. Discussed with Dr. Lagos and agree with findings and plan as documented in the note. Any exceptions or clarifications are listed here: [None] Documented By: Jennifer Valencia MD, FACOG Resident Activity Tracking <Kelle Lagos MD - Last Filed: 05/27/23 07:14> Resident Involvement: Resident Care Provided Care Provided: OB Delivery
[2023-05-27 06:53] LABS: Hematocrit (blood only) 35.7 % (37.0-47.0); Hemoglobin 12.1 g/dl (12.0-16.0); Mean Corpuscular Hemoglobin 28.8 pg (25.0-34.0); Mean Corpuscular Hgb Conc 33.9 g/dL (32.0-36.0); Mean Platelet Volume 11.1 fL (9.4-12.4); Platelet Count 164 K/uL (130-400); RDW Coefficient of Variation 13.1 % (11.5-14.5); RDW Standard Deviation 39.8 fL (36.4-46.3); White Blood Count 11.01 K/ul (4.8-10.8)
[2023-05-27] MEDS: DOCUSATE SODIUM 100 MG CAP PO SCH (07:30)
[2023-05-27] MEDS ORDERED: PRENATAL VITAMIN 1 TAB PO SCH (08:00)
[2023-05-27] MEDS ORDERED: bisacodyL 5 MG TABEC PO SCH (20:00)
--- OUTSIDE RECORDS SUMMARY | 2023-06-01 08:08 | External Medical Summary | Continuity of Care Document ---
Author Name Unknown Organization [facility] [address] [facility] [address] [place], [place] [id number] Encounter [facility] [id number] Date(s): 10/14/22 - 10/14/22 [facility] [address] [facility] [address] [place], [place] [id number] Encounter Diagnosis Changing skin lesion(Discharge Diagnosis) - 10/14/22 Multiple pigmented nevi(Discharge Diagnosis) - 10/14/22 Keratosis pilaris(Discharge Diagnosis) - 10/14/22 Family history of melanoma(Discharge Diagnosis) - 10/14/22 Discharge Disposition: Home or Self Care Attending Physician: LYLA Georges Dawn M Referring Physician: LYLA Georges Dawn M Allergies, Adverse Reactions, Alerts No Known Medication Allergies Assessment and Plan Extracted from: Title:Office Visit Note Author:LYLA Georges D awn M Date:10/14/22 1.Changing skin lesion Changing skin lesion - bx today. will contact with result 2.Multiple pigmented nevi chronic and stable -watchful waiting. Has had biopsies in the past. Nothing dysplastic. 3.Keratosis pilaris chronic and stable -Am lactin or urea. dove unscented bar soap, bland emollient. 4.Family history of melanoma Reviewed sun protection with SPF 30 or higher applied every 80 minutes and use of sun protective clothing and hat. Call with questions or concerns. Follow up 1 year and pending path. Patient in agreement with plan. Medications Multivitamins with Vitamin B Complex, Vitamin C, Minerals and L- Methylfolate oral capsule Start: 10/09/21 8:15:00 EDT Start Date: 10/09/21 Status: Ordered Mental Status 10/14/22 Barriers to Learning one year None evide nt Mandatory Health Literacy Documentation Yes Health Literacy Communication Barriers N ever Primary Language Scottish Problem List No Chronic Problems Diagnosis Diagnosis Type Effective Dates Health Status Cl inical Service Informant Changing skin lesion Discharge Diagnosis 10/14/22 Family history of melanoma Discharge Diagnosis 10/14/22 Multiple pigmented nevi Discharge Diagnosis 10/14/22 Keratosis pilaris Discharge Diagnosis 10/14/22 Procedures Procedure Date Related Diagnosis Body Site Status Shave biopsy 1 10/14/22 Completed Ganglion cyst 2 Completed Wellborn tooth Completed 1right pubis 2R wrist Social History Social History Type Response Smoking Status Never smoked cigaret fiordaliza Sex
== END 2023-05-27 19:47 | disposition home or self-care (01) | DRG 807 ==
LOC: 4S1 07:41 → 4E2 20:20